=== PATIENT | male | born 1965 | race American Indian/Alaskan Native ===

== ENCOUNTER 2018-12-16 11:27 | Observation (INO) | payer BC ==
[2018-12-16 11:41] VITALS: BMI 33.8
--- NOTE | 2018-12-16 12:05 | ED PDOC ---
Arrival/HPI - General Chief Complaint: Shortness Of Breath Time Seen by Provider: 12/16/18 11:46 Historian: Patient - History of Present Illness Narrative History of Present Illness (Text): 12/16/18 12:01 53 m with hx htn and dm2 presents to the ED with chief complaint of intermittent shortness of breath for the past two days.Patient states at night he noticed feeling short or breath, symptoms are not persistent throughout the day, last night symptom returned and was unable to get a good night rest. Patent reports he may have noticed some wheezing but also reports some nasal congestion. No cough, no fever, no chest pain or discomfort, no orthopnea. Patient came to the ED concerned he may have "walking pneumonia". Time/Duration: Other (2 days) Symptom Onset: Gradual Symptom Course: Unchanged Activities at Onset: Light Context: Exertion Past Medical History - Provider Review Nursing Documentation Reviewed: Yes - Infectious Disease Hx of Infectious Diseases: None - Cardiac Hx Hypertension: Yes - Endocrine/Metabolic Hx Diabetes Mellitus Type 2: Yes - Psychiatric Hx Substance Use: No - Anesthesia Hx Anesthesia: No Family/Social History - Physician Review Nursing Documentation Reviewed: Yes Family/Social History: No Known Family HX Smoking Status: Never Smoked Hx Alcohol Use: No Hx Substance Use: No Allergies/Home Meds Allergies/Adverse Reactions: Allergies No Known Allergies Allergy (Verified 12/16/18 19:19) Home Medications: Home Meds Medication Instructions Recorded Confirmed Carvedilol [Coreg] 1 tab PO DAILY 12/16/18 12/16/18 Glimepiride [amaRYL] 1 tab PO BID 12/16/18 12/16/18 MetFORMIN [glucoPHAGE] 1 tab PO DAILY 12/16/18 12/16/18 Review of Systems - Physician Review All systems were reviewed & negative as marked: Yes - Review of Systems Constitutional: absent: Fevers ENT: Sinus Congestion Respiratory: SOB, Wheezing. absent: Cough Cardiovascular: absent: Chest Pain Physical Exam - Physical Exam Narrative Physical Exam (Text): 12/16/18 12:06 Gen: VS reviewed, alert, well developed, well nourished, nontoxic, mild distress Eye: EOMI, PERRL Neck: no JVD, supple, no adenopathy CV: regular rate, regular rhythm, no rubs,no murmur, S1, S2 Pulm: no distress, clear to auscultation, no wheeze, no rhonchi, breath sounds equal, no rales Abd: soft, nontender, no guarding, no rebound, no rigidity Ext: no edema Skin: good color, no rash, no cyanosis Psych: responds appropriately to questions, normal affect Neuro: oriented x3, CN2-12 intact grossly, motor intact, sensation intact Vital Signs Reviewed: Yes Temperature: Afebrile Blood Pressure: Hypertensive Pulse: Tachycardic Respiratory Rate: Normal Medical Decision Making ED Course and Treatment: 12/16/18 12:07 patient seen for intermittent shortness of breath, no recent prolonged immobi lization, heart score =3. low suspicion for acs, will get serial troponin, cxr, dimer and if positive will follow up with CTA to rule out pe. 12/16/18 14:00 on follow up examination and discussion, patient is noticeably diaphoretic but does not have any cardiopulmonary symptoms. patient is also tachycardic on monitor (sinus tach at 107 bpm). will continue to monitor and the decision is made to admit 12/16/18 15:[address] hernandez, tele obs, consult to dr. marcus, echo and he will follow up with the result. patient to be admitted for atypical chest pain, rule out acs. - RAD Interpretation Narrative RAD Interpretations (Text): 12/16/18 13:26 Dictator: Sanjuanita Valencia Procedure: Chest X-ray Impression: Linear atelectasis, left mid lung zone. [employer] Manager: Radiologist - EKG Interpretation EKG Interpretation (Text): 12/16/18 12:10 ekg my read: snus tach at 106 bpm, nml qrs, nml axis, no acute sttw abn Interpreted by ED Physician: Yes Disposition/Present on Arrival - Present on Arrival Any Indicators Present on Arrival: No History of DVT/PE: No History of Uncontrolled Diabetes: No Urinary Catheter: No History of Decub. Ulcer: No History Surgical Site Infection Following: None - Disposition Have Diagnosis and Disposition been Completed?: Yes Diagnosis: Atypical chest pain Disposition: HOSPITALIZED Disposition Time: 20:29 Patient Plan: Observation Condition: STABLE
[2018-12-16 12:21] LABS: BASO # 0.02 K/mm3 (0.0-2.0); BASO % 0.4 % (0.0-3.0); EOS # 0.1 (0.0-0.7); EOS % 1.1 % (1.5-5.0); HEMOGLOBIN 12.7 g/dL (14.0-18.0); LYMPH # 2.2 (1.2-3.4); LYMPH % 39.5 % (22.0-35.0); MEAN CELL VOLUME 80.2 fl (80.0-105.0); MEAN CORPUSCULAR HEMOGLOBIN 26.2 pg (25.0-35.0); MEAN CORPUSCULAR HGB CONC 32.6 g/dl (31.0-37.0); MEAN PLATELET VOLUME 10.4 fl (7.0-11.0); MONO # 0.3 (0.1-0.6); MONO % 5.9 % (1.0-6.0); RBC 4.85 10^6/uL (3.5-6.1); RED CELL DISTRIBUTION WIDTH 14.2 % (11.5-14.5); WHITE BLOOD COUNT 5.6 10^3/uL (4.5-11.0)
[2018-12-16 12:36] LABS: ALB/GLOB RATIO 1.4 (1.1-1.8); ALBUMIN 4.2 g/dL (3.0-4.8); ALT/SGPT 29 U/L (7-56); AST/SGOT 20 U/L (17-59); BLOOD UREA NITROGEN 14 mg/dL (7-21); CALCIUM 9.2 mg/dL (8.4-10.5); GFR NON-AFRICAN AMERICAN > 60; HDL CHOLESTEROL 39 mg/dL (29-60)
[2018-12-16] MEDS ORDERED: Insulin Regular 1 UNITS/0.01 ML ML IVP STA (12:39)
[2018-12-16 12:40] LABS: LDL CHOLESTEROL 112 mg/dL (0-129); TROPONIN I 0.02 ng/mL
[2018-12-16 12:49] LABS: D DIMER < 200 ng/mlDDU (0-243); INR 1.01; PARTIAL THROMBOPLASTIN TIME 40.3 Seconds (26.9-38.3); PROTHROMBIN TIME 11.4 SECONDS (9.4-12.5)
--- NOTE | 2018-12-16 13:15 | RAD ---
HISTORY: dyspnea COMPARISON: Chest x-ray performed 12/16/18 TECHNIQUE: Chest PA and lateral FINDINGS: Examination limited by habitus. LUNGS: Linear atelectasis, left mid lung zone. Please note that chest x-ray has limited sensitivity for the detection of pulmonary masses. PLEURA: No significant pleural effusion identified. No definite pneumothorax . CARDIOVASCULAR: Heart size appears top normal. No atherosclerotic calcification present. OSSEOUS STRUCTURES: Degenerative changes of the spine. VISUALIZED UPPER ABDOMEN: Unremarkable. OTHER FINDINGS: None. IMPRESSION: Linear atelectasis, left mid lung zone.
[2018-12-16] MEDS: Levalbuterol 0.63 MG/3 ML Inhal Soln UD IH SCH (19:40)
[2018-12-16] MEDS: Insulin Reg-MEDIUM-Coverage SC SCH ×2 (19:49→22:16)
[2018-12-16] MEDS ORDERED: Pneumococcal 23-Valent Vaccine IM ONE (20:37)
[2018-12-16] MEDS ORDERED: Influenza Vaccine 60 mcg/0.5 mL SYR (4YR UP) IM ONE (20:37)
--- NOTE | 2018-12-16 20:41 | CARD ---
APPROVED REPORT Date of service: 12/16/2018 EKG Measurement Heart [id number] <Conclusion> Sinus tachycardia Possible Left atrial enlargement Left axis deviation Nonspecific T wave abnormality High Voltage-LVH.
--- NOTE | 2018-12-16 21:05 | CP.PCM.PCO ---
<Alvaro Burns - Last Filed: 12/16/18 20:56> Addendum Addendum: 12/16/18 20:56 Dr Burns House Resident 53M admitted for SOB, Pulm was consulted- requesting House Doc assessment. Pt reports marked improvement since his presentation in ED, reports relief from breathing treatments. Reports resolution of cough as well. PE: Pt is able to lay flat, no orthopnea, no cyanosis, no finger nail clubbing A: SOB, resolving P: continue with Xoponex breathing treatments PRN, monitor overnight <Joseph Garcia - Last Filed: 12/16/18 21:21> Attending/Attestation - Attestation I have personally seen and examined this patient.: Yes I have fully participated in the care of the patient.: Yes I have reviewed all pertinent clinical information: Yes
--- NOTE | 2018-12-16 22:10 | HP ---
DATE OF EXAM: 12/16/2018 HISTORY OF PRESENT ILLNESS: I was called down to the emergency room to admit Jarocho. He is a 53-year-old man who presented with shortness of breath for the past 2 days. He also had sweating at night time. His shortness of breath comes and goes, he is not sure why he is getting it. He could not get a good night's sleep. He also had some wheezing, nasal congestion. No cough. No chest pain. He felt that he was having a walking pneumonia at one point. PAST MEDICAL HISTORY: He has hypertension and type 2 diabetes. FAMILY HISTORY: Unknown. SOCIAL HISTORY: No smoker. No drinker. No drugs. He is a security solutions architect. ALLERGIES: NO KNOWN DRUG ALLERGIES. MEDICATIONS: He is supposed to be on Coreg, Amaryl and Glucophage. I am not sure if he has the medication or not, I do not think he has not been taking them. REVIEW OF SYSTEMS: No acute vision or hearing changes. No sore throat. No neck pain. No headache. He had a little bit of chest pain. No palpitations. A little bit shortness of breath. No cough. His abdomen is soft and nontender, positive bowel sounds. No nausea, vomiting, constipation, or diarrhea. Extremities, he can move all extremities, okay. Now, he is getting some wheezing. PHYSICAL EXAMINATION GENERAL: He is well developed and well nourished, nontoxic, mildly distressed, a little bit worried. VITAL SIGNS: He has a 98.1 temperature, pulse is up to 111 and 103, blood pressure is as high as 150/106, 140/108, and 16 respiratory rate, 98% O2 sat. HEENT: Head is atraumatic, normocephalic. Extraocular muscles are intact. Pupils equally reactive to light and accommodation. Throat is moist. NECK: Supple. No pharyngitis. No erythema. No JVD. No palpable lymphadenopathy cervically. Thyroid midline. HEART: Regular rate. Normal S1, S2. LUNGS: Decreased breath sounds. Clear to auscultation. No wheezes. No rhonchi or rales. ABDOMEN: Soft and nontender. Positive bowel sounds. Obese. No guarding. No rebound. No CVA tenderness. EXTREMITIES: No edema. SKIN: For most part is intact as far as I could tell with good turgor. No apparent rashes or ulcers. NEUROLOGIC: He is alert and oriented x3. Cranial nerves II through XII grossly intact. LABORATORY DATA: He had some tests done. Chest x-ray showed linear atelectasis, left mid lung zone. I want to get Pulmonary to look at him. I will put him on some DuoNeb. Call in Cardiology to get a 2-D echo. He has a 5.6 white count, 12.7 hemoglobin, 38.9 hematocrit, with a 220 platelets. A 1.01 INR. His D-dimer was normal. Sodium is 141, potassium 4.6, BUN is 14, creatinine 0.9, GFR is greater than 60, sugars are 337. I will put him back on his diabetes medication. Calcium is 9.2, total bili is 0.5, AST is 20, ALT is 29, alk phos 53. Troponin I is 0.02. Total protein is 7.2, albumin is 4.2, globulin is 3.1, triglycerides 84, cholesterol is 169. IMPRESSION AND PLAN: He will have a consult with Cardiology and Pulmonology, a 2-D echo, put him back on his medications, insulin coverage. He will be on observation. He is here for chest pain, shortness of breath, atelectasis, diabetes, and hypertension. Alli Adames DO
[2018-12-17] MEDS: Levalbuterol 0.63 MG/3 ML Inhal Soln UD IH SCH ×3 (01:25→13:07)
[2018-12-17 07:40] VITALS: O2SAT 96
[2018-12-17] MEDS: Insulin Reg-MEDIUM-Coverage SC SCH ×2 (08:11→12:28)
[2018-12-17 08:20] LABS: ALB/GLOB RATIO 1.1 (1.1-1.8); ALBUMIN 3.8 g/dL (3.0-4.8); ALT/SGPT 29 U/L (7-56); AST/SGOT 26 U/L (17-59); BLOOD UREA NITROGEN 11 mg/dL (7-21); CALCIUM 9.1 mg/dL (8.4-10.5); GFR NON-AFRICAN AMERICAN > 60
[2018-12-17 13:32] VITALS: BP 150/103; PULSE 97; RESP 20; TEMP 98
--- NOTE | 2018-12-17 13:44 | US ---
HISTORY: Leg pain and swelling. Evaluate for DVT PHYSICIAN(S): Jah Knox MD. TECHNIQUE: Duplex sonography and color-flow Doppler with graded compression were used to evaluate the deep venous systems of both lower extremities. FINDINGS: The visualized deep venous systems of both lower extremities are sonographically normal and compressible. Normal wave forms and augmentation are seen. There is no sonographic evidence for deep venous thrombosis in the visualized segments of both lower extremities. IMPRESSION: No sonographic evidence for deep venous thrombosis in the visualized segments of both lower extremities.
--- NOTE | 2018-12-17 13:46 | CON ---
DATE: 12/17/2018 HISTORY: The patient is a 53-year-old male, who presents with 2 days of morning dyspnea, which is now resolved. The patient denies chest pain. No previous cardiac history in the past. He does suffer from diabetes mellitus and hypertension, which he has taken his 's medications. He currently works as a security patrol officer. SOCIAL HISTORY: The patient denies smoking. There is no family history for CAD. REVIEW OF SYSTEMS: Includes an extensor 14-point review of systems. His shortness of breath is resolved. No edema in the lower extremities. No dyspnea. No chest pain. No previous myocardial infarction. No orthopnea. No PND. The patient feels normal. PHYSICAL EXAMINATION: VITAL SIGNS: Blood pressure is 132/82, heart rates in the 90s, normal sinus rhythm. NECK: Negative JVD. LUNGS: Without rales. HEART: Reveals S1, S2. EXTREMITIES: Without edema. EKG shows normal sinus rhythm with left anterior hemiblock and nonspecific ST-T changes. LABORATORY DATA: The laboratories include troponin that is indeterminate at 0.05. The glucose is 183. IMPRESSION: 1. Transient dyspnea, which is now resolved. 2. Diabetes mellitus. 3. Hypertension. 4. High probability for coronary artery disease. I have discussed extensively with the patient about the diagnostic and therapeutic options. Risks and benefits were discussed in detail. The patient elects to go home today. He agrees to follow up as an outpatient, which we will approach with a noninvasive approach with a stress test prior to cardiac catheterization. In addition, we will start the patient on aspirin as well as beta-blockers. Jah Jenkins MD
--- NOTE | 2018-12-17 14:56 | DS ---
HISTORY OF PRESENT ILLNESS: I saw Dr. Jenkins, Nursing Program Director. We discussed the situation at this time. The patient chooses to see outpatient care has oppose to inpatient for cardiac cath. He is doing better. He is eating well. No more shortness of breath or chest pain. PHYSICAL EXAMINATION: VIAL SIGNS: 98.2 temperature, 99 pulse, 132/82 blood pressure, 19 respiratory rate, 96% O2 sat on room air. HEENT: Head; atraumatic and normocephalic. HEART: Regular rate. LUNGS: Decreased breath sounds, but clear. ABDOMEN: Soft, obese. EXTREMITIES: No edema. LABORATORY DATA: He has a 5.6 white count, 12.7 hemoglobin, 38.9 hematocrit with a 222 platelets. 1.01 INR. He has a 143 sodium, potassium 4.2, BUN 11, creatinine 0.9, GFR is greater than 60, sugar is 183, calcium 9.1, total bilirubin is 0.7. AST is 26, ALT is 29, alkaline phosphatase 52, troponin I was 0.03 and 0.05 undetermined. Total protein 7.2. ASSESSMENT AND PLAN: He was seen by Dr. Jenkins. He is going to scheduled as an outpatient stress test. I will be see him in the office on Wednesday, Wednesday, and . We scheduled the stress test and echo on the outpatient, he understands this. He is going to go home on Amaryl 2 mg twice a day, aspirin 81 mg daily, metformin 1000 twice a day, metoprolol 25 mg twice a day, Xopenex inhaler puffer one puff three times a day as needed plus Norvasc 5 mg daily. He is not going to take Coreg anymore that was actually his 's medicine. He just told this morning. I will see him next week on the outpatient understands to call me if any changes. He is here with chest pain, shortness of breath, diabetes, atelectasis. Alli Adames DO [facility]
--- NOTE | 2018-12-17 15:18 | CARD ---
APPROVED REPORT Date of service: 12/17/2018 EXAM: Two-dimensional and M-mode echocardiogram with Doppler and color Doppler. INDICATION Dyspnea Chest Pain 2D DIMENSIONS Left Atrium (2D)4.4 (1.6-4.0cm)IVSd1.3 (0.7-1.1cm) LVDd6.1 (3.9-5.9cm)PWd1.2 (0.7-1.1cm) LVDs5.2 (2.5-4.0cm)FS (%) 14.9 % LVEF (%)31.0 (>50%) M-Mode DIMENSIONS Aortic Root3.60 (2.2-3.7cm)Aortic Cusp Exc.1.90 (1.5-2.0cm) Aortic Valve AoV Peak Jdhrmdja948.0cm/Augustina Peak GR.5mmHg Mitral Valve MV E Amjageux85.3cm/sMV A Nkslrcbv82.5cm/sE/A ratio1.6 TDI E/Lateral E'0.0E/Medial E'0.0 Tricuspid Valve TR Peak [id number]/sRAP [id number] Peak Gr.13mmHg ACET84ucSa LEFT VENTRICLE The Left Ventricle is borderline dilated. There is mild concentric left ventricular hypertrophy. The systolic function is severely impaired. Significant regional wall motion abnormalities noted. The left ventricular diastolic function is normal. No left ventricle thrombus noted on this study. RIGHT VENTRICLE The right ventricle is normal size. There is normal right ventricular wall thickness. The right ventricular systolic function is normal. ATRIA The left atrium is mildly dilated. The right atrium size is normal. AORTIC VALVE The aortic valve is normal in structure. There is trace aortic regurgitation. There is no aortic valvular stenosis. MITRAL VALVE The mitral valve is moderately thickened. Mitral regurgitation is mild to moderate. There is no mitral valve stenosis. TRICUSPID VALVE The tricuspid valve is normal in structure. There is no tricuspid valve regurgitation noted. PULMONIC VALVE The pulmonary valve is normal in structure. There is no pulmonic valvular regurgitation. GREAT VESSELS The aortic root is normal in size. The IVC is normal in size and collapses >50% with inspiration. <Conclusion> The Left Ventricle is borderline dilated. There is mild concentric left ventricular hypertrophy. The systolic function is severely impaired. Significant regional wall motion abnormalities noted. No left ventricle thrombus noted on this study. There is trace aortic regurgitation. Mitral regurgitation is mild to moderate.
--- NOTE | 2018-12-17 15:25 | NM ---
Date of service: 12/17/2018 COMPARISON: Chest x-ray 12/16/2018 TECHNIQUE: 30.0 mCi technetium 99-m DTPA aerosol. 5.6 mCI technetium 99-m MAA administered intravenously. FINDINGS: VENTILATION COMPONENT: Normal. PERFUSION COMPONENT: Normal. IMPRESSION: Lowprobability ventilation perfusion scan for pulmonary embolism.
--- NOTE | 2018-12-17 21:07 | CON ---
DATE: 12/17/2018 HISTORY OF PRESENT ILLNESS: Mr. Wong is a 53-year-old gentleman who complained of acute shortness of breath for several days with some chest tightness at the same time. He had difficulty breathing. He was uncomfortable. No other history is available. The patient has a history of hypertension and type 2 diabetes mellitus. He is a nonsmoker. He has no history of asthma. FAMILY HISTORY: No history of asthma or other pulmonary diseases. 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 SOCIAL HISTORY: Non-smoker ALLERGIES: NONE KNOWN. MEDICATIONS: As described above. Glucophage, Amaryl, Coreg. REVIEW OF SYSTEMS: Shortness of breath, chest tightness. All other systems negative. He has no pets. He has no travel history. There is no occupational exposure. There is no family history of asthma. He has not had any previous respiratory distress in the past, although he is poorly active. PHYSICAL EXAMINATION: GENERAL: The patient is resting comfortably, in no acute respiratory distress. VITAL SIGNS: Stable. Blood pressure 130/87, respiratory rate 18, heart rate 90. NECK: Supple. No jugular venous distention. No lymphadenopathy. HEART: Regular rhythm. S1, S2 without murmur, gallop or rub. LUNGS: Global decrease in breath sounds. No rales, rhonchi or wheezes. GASTROINTESTINAL: Soft. Bowel sounds normoactive. EXTREMITIES: No clubbing, cyanosis or edema. There is no Homans sign. SKIN: Shows no rash or excoriation. NEUROLOGIC: No focal findings. LABORATORY DATA: Chest x-ray shows linear atelectasis, possible midlung abnormalities. Additional laboratory studies have been reviewed. D-dimer was reported as normal. Electrolytes normal. EKG, sinus rhythm nonspecific ST-T wave changes. CLINICAL IMPRESSION: 1. Atypical chest pain. 2. Atelectasis. 3. Pleurisy? PLAN: Follow rule out etiologies including echocardiogram which has already been requested, strongly suggest VQ even though the D-dimer is normal. This may be musculoskeletal in nature, but all cardiac and pulmonary issues must be excluded prior to resting the diagnosis with a musculoskeletal etiology. Thank you for the opportunity to evaluate this patient. Dexter Saavedra MD [facility] # [id number]
== END 2018-12-17 17:35 | disposition home or self-care (01) ==
LOC: ED 11:27 → ERH 15:28 → 2RNO 18:47
PROVIDERS: ADMIT Family Medicine; ATTEND Family Medicine
DX: R06.02 Shortness of breath (principal); R07.89 Other chest pain; E11.9 Type 2 diabetes mellitus without complications; J98.11 Atelectasis; I10 Essential (primary) hypertension; Z79.82 Long term (current) use of aspirin; Z79.84 Long term (current) use of oral hypoglycemic drugs
CPT/HCPCS: 36415; 71046; 78582; 80053; 80061; 82948; 84484; 85025; 85378; 85610; 85730; 93005; 93306; 93970; 94640; 94761; 96374; 99285; A9540; G0378